=== PATIENT | male | born 1950 | race Caucasian/White ===

== ENCOUNTER 2023-09-02 09:54 | Inpatient (IN) | payer SELFPAY ==
[~2023-09-02] VITALS: Ht 170.2 cm; Wt 72.6 kg
[2023-09-02 10:36] LABS: BASOPHILS % 1.1 % (0.0-2.0); EOSINOPHILS % 1.1 % (0.0-5.0); HEMATOCRIT. 32.4 % (42.0-52.0); HEMOGLOBIN. 10.9 g/dL (14.0-18.0); LYMPHOCYTES % 7.3 % (20.0-50.0); MEAN CORPUSCULAR HEMOGLOBIN 31.2 pg (28.0-32.0); MEAN CORPUSCULAR HGB CONC 33.8 g/dL (31.0-37.0); MEAN CORPUSCULAR VOLUME 92.4 fL (80.0-94.0); MEAN PLATELET VOLUME 7.1 fl (7.4-10.4); MONOCYTES % 9.3 % (2.0-8.0); NEUTROPHILS % 81.2 % (40.0-76.0); PLATELET 354 x1000/uL (130-400); RED BLOOD CELL COUNT 3.51 mill/uL (4.7-6.1); RED CELL DISTRIBUTION WIDTH 13.8 % (11.6-14.6); WHITE BLOOD COUNT 9.5 x1000/uL (4.5-11.0)
[2023-09-02 10:48] LABS: CARBON DIOXIDE 22 mEq/L (21-32); CHLORIDE 107 mEq/L (98-107); POTASSIUM 3.2 mEq/L (3.5-5.1); SODIUM 139 mEq/L (136-145)
[2023-09-02 10:49] LABS: CALCIUM 6.1 mg/dL (8.7-10.4)
[2023-09-02 10:53] LABS: CREATININE 2.9 mg/dL (0.6-1.3); GLUCOSE 99 mg/dL (70-105); UREA NITROGEN BLOOD 11 mg/dL (9-23)
[2023-09-02 10:54] LABS: TROPONIN I HIGH SENSITIVITY 15 ng/L (3.0-53)
[2023-09-02 10:55] LABS: ALANINE AMINOTRANSFERASE 15 IU/L (10-49); ALBUMIN 2.8 g/dL (3.2-4.8); ASPARTATE AMINOTRANSFERASE 36 IU/L (<34)
[2023-09-02 10:56] LABS: BILIRUBIN TOTAL 0.3 mg/dL (0.1-1.0); PROTEIN TOTAL 4.9 g/dL (6.0-8.3)
[2023-09-02 11:50] LABS: INR 1.2; PROTHROMBIN TIME 13.7 sec (9.6-11.0)
[2023-09-02] MEDS: AZITHROMYCIN 500MG/250ML 250 ML IV SCH (11:51)
[2023-09-02] MEDS: CEFTRIAXONE 2GM/50ML 50 ML IV ONE (13:57)
[2023-09-02 16:00] VITALS: BP 137/85; PULSE 96; RESP 18; TEMP 97.9
[2023-09-02 17:58] VITALS: BP 137/85; PULSE 94; RESP 18; TEMP 97.8
[2023-09-02] MEDS ORDERED: DIPHENHYDRAMINE 50MG/ML VIAL IV PRN (18:00)
[2023-09-02] MEDS ORDERED: CLONIDINE 0.1MG TABLET PO PRN (18:00)
[2023-09-02] MEDS ORDERED: DEXTROSE 50% WATER 50ML SYRINGE IV PRN (18:00)
[2023-09-02] MEDS ORDERED: MAGNESIUM/ALUMINUM HYDROXIDE/SIMETHICONE 30ML UDC PO PRN (18:00)
[2023-09-02] MEDS ORDERED: ONDANSETRON HCL 4MG/2ML INJ IV PRN (18:00)
[2023-09-02] MEDS ORDERED: ACETAMINOPHEN 325MG TABLET PO PRN ×2 (18:00)
[2023-09-02] MEDS ORDERED: GUAIFENESIN 200MG/10ML SUGAR FREE UDC PO PRN (18:00)
[2023-09-02 20:00] VITALS: BP 121/73; PULSE 119; RESP 18; TEMP 98.4
[2023-09-02] MEDS: BLOOD SUGAR DIAGNOSTIC STRIP TEST SCH (21:00)
[2023-09-02] MEDS: SODIUM CHLORIDE 0.9% INJ 3ML FLUSH IVF SCH (21:08)
[2023-09-02] MEDS: INSULIN LISPRO 100 UNITS/ML SUBCUT SCH (21:12)
[2023-09-02 21:28] LABS: TROPONIN I HIGH SENSITIVITY 21 ng/L (3.0-53)
[2023-09-03] VITALS: BP 109/75; PULSE 91; RESP 19; TEMP 98.8
[2023-09-03 04:00] VITALS: BP 140/74; PULSE 94; RESP 18; TEMP 98.9
[2023-09-03 08:00] VITALS: BP 128/79; PULSE 107; RESP 18; TEMP 97.3
[2023-09-03] MEDS ORDERED: METO-539 PO (08:36)
[2023-09-03] MEDS ORDERED: LOPHC2 GT (08:36)
[2023-09-03] MEDS ORDERED: AMLO5TAB88 PO (08:38)
[2023-09-03] MEDS ORDERED: LOSA50TA41 PO (08:41)
[2023-09-03] MEDS ORDERED: CALC667C MT (08:45)
[2023-09-03 12:00] VITALS: BP 123/75; PULSE 105; RESP 20; TEMP 97.5
[2023-09-03 16:00] VITALS: BP 117/58; PULSE 112; RESP 18; TEMP 97.8
[2023-09-03 20:00] VITALS: BP 106/85; PULSE 100; RESP 18; TEMP 97.9
[2023-09-04] VITALS (10 sets, daily range): BP systolic 131–150; BP diastolic 72–91; PULSE 97–106; RESP 18–20; TEMP 96.6–98; O2SAT 97
[2023-09-04 08:38] LABS: BASOPHILS % 1.1 % (0.0-2.0); EOSINOPHILS % 2.4 % (0.0-5.0); HEMOGLOBIN. 8.8 g/dL (14.0-18.0); LYMPHOCYTES % 9.5 % (20.0-50.0); MEAN CORPUSCULAR HEMOGLOBIN 31.2 pg (28.0-32.0); MEAN CORPUSCULAR VOLUME 91.7 fL (80.0-94.0); MEAN PLATELET VOLUME 6.3 fl (7.4-10.4); MONOCYTES % 11.9 % (2.0-8.0); NEUTROPHILS % 75.1 % (40.0-76.0); PLATELET 320 x1000/uL (130-400); RED BLOOD CELL COUNT 2.84 mill/uL (4.7-6.1); RED CELL DISTRIBUTION WIDTH 13.7 % (11.6-14.6); WHITE BLOOD COUNT 7.9 x1000/uL (4.5-11.0)
[2023-09-04 08:47] LABS: CHLORIDE 100 mEq/L (98-107); POTASSIUM 3.8 mEq/L (3.5-5.1); SODIUM 135 mEq/L (136-145)
[2023-09-04 08:48] LABS: CARBON DIOXIDE 25 mEq/L (21-32)
[2023-09-04 08:49] LABS: CALCIUM 7.4 mg/dL (8.7-10.4)
[2023-09-04 08:53] LABS: GLUCOSE 97 mg/dL (70-105)
[2023-09-04 08:54] LABS: UREA NITROGEN BLOOD 28 mg/dL (9-23)
[2023-09-04 08:56] LABS: PHOSPHORUS 4.7 mg/dL (2.5-4.9)
== END 2023-09-04 19:20 | disposition home or self-care (01) | DRG 48 ==
LOC: ER 10:23 → EDBD 10:23 → EDBEDREQ 13:39 → EDBEDREQTM 13:39 → 8WST 17:04 → EDBD 17:04 → 8WST 17:25
PROVIDERS: ADMIT Internal Medicine; ATTEND Internal Medicine
DX: G90.8 Other disorders of autonomic nervous system (principal); I12.0 Hypertensive chronic kidney disease with stage 5 chronic kidney disease or end stage renal disease; N18.6 End stage renal disease; I48.20 Chronic atrial fibrillation, unspecified; E11.22 Type 2 diabetes mellitus with diabetic chronic kidney disease; I25.10 Atherosclerotic heart disease of native coronary artery without angina pectoris; Z99.2 Dependence on renal dialysis; Z60.3 Acculturation difficulty; I25.2 Old myocardial infarction; Z91.199 Patient's noncompliance with other medical treatment and regimen due to unspecified reason
CPT/HCPCS: 36415; 71045; 71250; 76770; 80048; 80053; 82962; 83036; 83735; 83880; 84100; 84484; 85025; 90935; 93005; 93306; 99291; J0456; J0696; J1815

== ENCOUNTER 2023-10-20 21:34 | Inpatient (IN) | payer SELFPAY ==
[~2023-10-20] VITALS: Ht 167.6 cm; Wt 66.2 kg
[~2023-10-20 21:34] MED LIST: AMLO5TAB88 PO; CALC667C PO; LOSA50TA41 PO; METO-539 PO
[2023-10-20] MEDS ORDERED: ALBUTEROL (0.083%) 2.5MG/3ML NEB HHN STA (21:41)
[2023-10-20] MEDS ORDERED: IPRATROPIUM BROMIDE (0.02%) 0.5MG/2.5ML NEB HHN STA (21:41)
[2023-10-20] MEDS: METHYLPREDNISOLONE SOD SUCC 125MG/2ML (ACT-O-VIAL) IV STA (21:59)
[2023-10-20] MEDS: HYDRALAZINE 20MG/ML VIAL IV ONE (21:59)
[2023-10-20 22:03] VITALS: RESP 34
[2023-10-20 22:12] LABS: BASOPHILS % 1.1 % (0.0-2.0); HEMATOCRIT. 37.9 % (42.0-52.0); LYMPHOCYTES % 21.1 % (20.0-50.0); MEAN CORPUSCULAR HEMOGLOBIN 29.1 pg (28.0-32.0); MEAN CORPUSCULAR HGB CONC 31.7 g/dL (31.0-37.0); MEAN CORPUSCULAR VOLUME 91.7 fL (80.0-94.0); MEAN PLATELET VOLUME 7.1 fl (7.4-10.4); MONOCYTES % 11.3 % (2.0-8.0); NEUTROPHILS % 64.5 % (40.0-76.0); PLATELET 307 x1000/uL (130-400); RED BLOOD CELL COUNT 4.13 mill/uL (4.7-6.1); RED CELL DISTRIBUTION WIDTH 16.6 % (11.6-14.6)
[2023-10-20 22:20] LABS: CARBON DIOXIDE 26 mEq/L (21-32); CHLORIDE 98 mEq/L (98-107); POTASSIUM 4.1 mEq/L (3.5-5.1); SODIUM 134 mEq/L (136-145)
[2023-10-20 22:21] LABS: CALCIUM 9.3 mg/dL (8.7-10.4)
[2023-10-20 22:26] LABS: GLUCOSE 243 mg/dL (70-105); UREA NITROGEN BLOOD 32 mg/dL (9-23)
[2023-10-20 22:29] LABS: TROPONIN I HIGH SENSITIVITY 61 ng/L (3.0-53)
[2023-10-20 22:30] LABS: CREATININE 6.2 mg/dL (0.6-1.3)
[2023-10-20 22:36] LABS: BG BASE EXCESS -3.3 mmol/L (-2.0-2.0); BG CARBOXYHEMOGLOBIN 1.2 % (0.5-1.5); BG DEOXYHEMOGLOBIN 15.8 % (0.0-5.0); BG FRACTION INSPIRED OXYGEN 100; BG HCO3 ACT 26.1 mmol/L (22.0-26.0); BG METHEMOGLOBIN 0.2 % (0.0-1.5); BG OXYHEMOGLOBIN 82.8 % (94.0-97.0); BG PCO2 68.1 mmHg (35.0-45.0); BG PH 7.201 (7.350-7.450); BG PO2 59.3 mmHg (75.0-100.0); BG TOTAL HEMOGLOBIN 13.2 g/dL (12.0-18.0); BG VENT MODE MASK - NRB
[2023-10-21] VITALS (22 sets, daily range): BP systolic 15–178; BP diastolic 79–109; PULSE 87–125; RESP 16–35; TEMP 97–98.4
[2023-10-21] MEDS ORDERED: MAGNESIUM/ALUMINUM HYDROXIDE/SIMETHICONE 30ML UDC PO PRN (01:15)
[2023-10-21] MEDS ORDERED: ACETAMINOPHEN 325MG TABLET PO PRN ×2 (01:15)
[2023-10-21] MEDS ORDERED: GUAIFENESIN 200MG/10ML SUGAR FREE UDC PO PRN (01:15)
[2023-10-21] MEDS ORDERED: ONDANSETRON HCL 4MG/2ML INJ IV PRN (01:15)
[2023-10-21] MEDS ORDERED: DOCUSATE SODIUM 100MG CAPSULE PO PRN (01:15)
[2023-10-21] MEDS ORDERED: IPRATROPIUM/ALBUTEROL 0.5-3(2.5)MG/3ML NEB HHN PRN (01:15)
[2023-10-21] MEDS: CLONIDINE 0.1MG TABLET PO PRN (01:41)
[2023-10-21] MEDS ORDERED: DEXTROSE 50% WATER 50ML SYRINGE IV PRN (02:45)
[2023-10-21 05:50] LABS: CHLORIDE 99 mEq/L (98-107); D-DIMER 2.45 mg/L FEU (<0.50); INR 1.1; POTASSIUM 4.5 mEq/L (3.5-5.1); PROTHROMBIN TIME 11.9 sec (9.6-11.0); SODIUM 135 mEq/L (136-145)
[2023-10-21 05:51] LABS: CARBON DIOXIDE 25 mEq/L (21-32)
[2023-10-21 05:56] LABS: GLUCOSE 170 mg/dL (70-105); UREA NITROGEN BLOOD 35 mg/dL (9-23)
[2023-10-21 05:58] LABS: PHOSPHORUS 2.8 mg/dL (2.5-4.9)
[2023-10-21 05:59] LABS: CREATINE KINASE MB FRACTION 3.9 ng/mL (0.5-3.6); HEMATOCRIT. 32.9 % (42.0-52.0); HEMOGLOBIN. 10.4 g/dL (14.0-18.0); MEAN CORPUSCULAR HEMOGLOBIN 28.7 pg (28.0-32.0); MEAN CORPUSCULAR HGB CONC 31.6 g/dL (31.0-37.0); MEAN PLATELET VOLUME 7.2 fl (7.4-10.4); PLATELET 241 x1000/uL (130-400); RED BLOOD CELL COUNT 3.61 mill/uL (4.7-6.1); RED CELL DISTRIBUTION WIDTH 16.5 % (11.6-14.6); WHITE BLOOD COUNT 6.2 x1000/uL (4.5-11.0)
[2023-10-21 06:26] LABS: HEPATITIS B SURFACE ANTIGEN NEGATIVE (Negative)
[2023-10-21 06:41] LABS: CREATININE 6.9 mg/dL (0.6-1.3)
[2023-10-21 06:47] LABS: HEPATITIS A AB IGM NEGATIVE (Negative)
[2023-10-21 06:48] LABS: HEPATITIS B CORE AB IGM NEGATIVE (Negative); HEPATITIS C AB NON REACTIVE (Neg) (Negative)
[2023-10-21 07:17] LABS: DIFFERENTIAL COMMENT 1
[2023-10-21] MEDS: BLOOD SUGAR DIAGNOSTIC STRIP TEST SCH (07:30)
[2023-10-21 09:39] LABS: BG BASE EXCESS -0.1 mmol/L (-2.0-2.0); BG CALCIUM 1.12 mmol/L (1.13-1.32); BG CARBOXYHEMOGLOBIN 0.1 % (0.5-1.5); BG CHLORIDE 96 mmol/L (98-106); BG DEOXYHEMOGLOBIN 1.8 % (0.0-5.0); BG FRACTION INSPIRED OXYGEN 50; BG HCO3 ACT 24.3 mmol/L (22.0-26.0); BG METHEMOGLOBIN 0.3 % (0.0-1.5); BG OXYGEN SATURATION 98.2 % (92.0-98.5); BG OXYHEMOGLOBIN 97.8 % (94.0-97.0); BG PH 7.413 (7.350-7.450); BG PO2 118.3 mmHg (75.0-100.0); BG POTASSIUM 4.28 mmol/L (3.50-5.30); BG SAMPLE SITE RIGHT BRACHIAL; BG SODIUM 134.6 mmol/L (135.0-148.0); BG TOTAL HEMOGLOBIN 13.4 g/dL (12.0-18.0); BG VENT MODE MASK - BIPAP
[2023-10-21] MEDS: CALCIUM ACETATE 667MG CAPSULE PO SCH (10:25)
[2023-10-21] MEDS: AMLODIPINE 5MG TABLET PO SCH (10:26)
[2023-10-21] MEDS: PANTOPRAZOLE 40MG DR TABLET PO SCH (10:27)
[2023-10-21] MEDS: METOPROLOL TARTRATE 50MG TABLET PO SCH (10:27)
[2023-10-21] MEDS: INSULIN LISPRO 100 UNITS/ML SUBCUT SCH (10:28)
[2023-10-21] MEDS: ENOXAPARIN 30MG/0.3ML SYR SUBCUT SCH (10:28)
[2023-10-21 14:03] LABS: ANISOCYTOSIS 1+; PLATELET ESTIMATE NORMAL
[2023-10-21 15:10] LABS: CREATINE KINASE MB FRACTION 4.3 ng/mL (0.5-3.6)
[2023-10-22] VITALS (7 sets, daily range): BP systolic 120–165; BP diastolic 80–100; PULSE 74–103; RESP 13–27; TEMP 97.3–99.1; O2SAT 98
[2023-10-23] MEDS ORDERED: AMLODIPINE 10MG TABLET PO SCH (09:00)
[2023-10-23] MEDS ORDERED: FAMOTIDINE 20MG TABLET PO SCH (09:00)
== END 2023-10-22 18:55 | disposition home or self-care (01) | DRG 133 ==
LOC: ER 21:34 → 5EST 10-21 01:41
PROVIDERS: ADMIT Hospitalist; ATTEND Hospitalist
PROC: 5A1935Z Respiratory Ventilation, Less than 24 Consecutive Hours (ICD-10-PCS; principal; 2023-10-20)
PROC: 5A09357 Assistance with Respiratory Ventilation, Less than 24 Consecutive Hours, Continuous Positive Airway Pressure (ICD-10-PCS; 2023-10-20)
PROC: 5A1D70Z Performance of Urinary Filtration, Intermittent, Less than 6 Hours Per Day (ICD-10-PCS; 2023-10-21)
DX: J96.01 Acute respiratory failure with hypoxia (principal); I50.23 Acute on chronic systolic (congestive) heart failure; I21.A1 Myocardial infarction type 2; D63.1 Anemia in chronic kidney disease; E83.39 Other disorders of phosphorus metabolism; I13.2 Hypertensive heart and chronic kidney disease with heart failure and with stage 5 chronic kidney disease, or end stage renal disease; E87.29 Other acidosis; J84.9 Interstitial pulmonary disease, unspecified; I48.20 Chronic atrial fibrillation, unspecified; N18.6 End stage renal disease; E11.22 Type 2 diabetes mellitus with diabetic chronic kidney disease; N25.81 Secondary hyperparathyroidism of renal origin; I16.1 Hypertensive emergency; Z99.2 Dependence on renal dialysis; Z79.01 Long term (current) use of anticoagulants; Z79.899 Other long term (current) drug therapy; Z91.199 Patient's noncompliance with other medical treatment and regimen due to unspecified reason
CPT/HCPCS: 36415; 36600; 71045; 80048; 80051; 82375; 82550; 82553; 82805; 82962; 83735; 83880; 84100; 84484; 85025; 85379; 86705; 86709; 87340; 90935; 93005; 93970; 94660; 99291; J0360; J1650; J1815; J2919

== ENCOUNTER 2023-11-06 04:03 | Inpatient (IN) | payer MEDICAID ==
[~2023-11-06] VITALS: Ht 167.6 cm; Wt 75.3 kg
[2023-11-06] VITALS (11 sets, daily range): BP systolic 110–185; BP diastolic 20–105; PULSE 107–108; RESP 20–38; TEMP 97.5–98
[2023-11-06] MEDS: ALBUTEROL (0.083%) 2.5MG/3ML NEB HHN STA (04:15)
[2023-11-06] MEDS: IPRATROPIUM BROMIDE (0.02%) 0.5MG/2.5ML NEB HHN STA (04:15)
[2023-11-06] MEDS: NITROGLYCERIN 50MG PREMIX 250 ML IV ONE ×2 (04:23→04:32)
[2023-11-06 04:31] LABS: BG BASE EXCESS -4.6 mmol/L (-2.0-2.0); BG DEOXYHEMOGLOBIN 4.7 % (0.0-5.0); BG FRACTION INSPIRED OXYGEN 40; BG HCO3 ACT 21.8 mmol/L (22.0-26.0); BG METHEMOGLOBIN 0.1 % (0.0-1.5); BG OXYGEN SATURATION 95.2 % (92.0-98.5); BG OXYHEMOGLOBIN 94.2 % (94.0-97.0); BG PCO2 45.2 mmHg (35.0-45.0); BG PH 7.301 (7.350-7.450); BG PO2 84.7 mmHg (75.0-100.0); BG SAMPLE SITE RIGHT RADIAL; BG VENT MODE MASK - BIPAP
[2023-11-06 04:34] LABS: BASOPHILS % 0.7 % (0.0-2.0); EOSINOPHILS % 1.3 % (0.0-5.0); HEMATOCRIT. 40.9 % (42.0-52.0); LYMPHOCYTES % 12.5 % (20.0-50.0); MEAN CORPUSCULAR HEMOGLOBIN 28.7 pg (28.0-32.0); MEAN CORPUSCULAR HGB CONC 31.8 g/dL (31.0-37.0); MEAN PLATELET VOLUME 6.4 fl (7.4-10.4); MONOCYTES % 7.1 % (2.0-8.0); NEUTROPHILS % 78.4 % (40.0-76.0); PLATELET 234 x1000/uL (130-400); RED BLOOD CELL COUNT 4.54 mill/uL (4.7-6.1); WHITE BLOOD COUNT 9.7 x1000/uL (4.5-11.0)
[2023-11-06 04:49] LABS: PARTIAL THROMBOPLASTIN TIME 27.2 sec (23.4-31.0); PROTHROMBIN TIME 11.3 sec (9.6-11.0)
[2023-11-06 04:50] LABS: CHLORIDE 103 mEq/L (98-107); SODIUM 138 mEq/L (136-145)
[2023-11-06 04:51] LABS: CARBON DIOXIDE 22 mEq/L (21-32)
[2023-11-06 04:52] LABS: CALCIUM 8.5 mg/dL (8.7-10.4)
[2023-11-06 04:57] LABS: GLUCOSE 237 mg/dL (70-105); UREA NITROGEN BLOOD 20 mg/dL (9-23)
[2023-11-06 04:58] LABS: ALANINE AMINOTRANSFERASE 10 IU/L (10-49); ASPARTATE AMINOTRANSFERASE 25 IU/L (<34)
[2023-11-06 04:59] LABS: BILIRUBIN DIRECT 0.2 mg/dL (<=3.0); BILIRUBIN TOTAL 0.5 mg/dL (0.1-1.0); PROTEIN TOTAL 6.7 g/dL (6.0-8.3)
[2023-11-06 05:08] LABS: ETHANOL BLOOD < 10 mg/dL (<10)
[2023-11-06 05:15] LABS: CREATININE 6.6 mg/dL (0.6-1.3); TROPONIN I HIGH SENSITIVITY 106 ng/L (3.0-53)
[2023-11-06] MEDS: FUROSEMIDE 40MG/4ML VIAL IVP ONE (05:20)
[2023-11-06 08:32] LABS: TROPONIN I HIGH SENSITIVITY 146 ng/L (3.0-53)
[2023-11-06] MEDS ORDERED: ONDANSETRON HCL 4MG/2ML INJ IV PRN (13:00)
[2023-11-06] MEDS ORDERED: IPRATROPIUM/ALBUTEROL 0.5-3(2.5)MG/3ML NEB HHN PRN (13:00)
[2023-11-06] MEDS: NIFEDIPINE XL 60MG TAB PO SCH (13:22)
[2023-11-06 14:24] LABS: HEPATITIS B SURFACE ANTIGEN NEGATIVE (Negative)
[2023-11-06 14:44] LABS: HEPATITIS A AB IGM NEGATIVE (Negative)
[2023-11-06 14:45] LABS: HEPATITIS B CORE AB IGM NEGATIVE (Negative); HEPATITIS C AB NON REACTIVE (Neg) (Negative)
[2023-11-06] MEDS ORDERED: DEXTROSE 50% WATER 50ML SYRINGE IV PRN ×2 (23:30)
[2023-11-07] VITALS (19 sets, daily range): BP systolic 125–151; BP diastolic 75–92; PULSE 94–109; RESP 16–28; TEMP 97–98.8
[2023-11-07 07:03] LABS: BASOPHILS % 0.8 % (0.0-2.0); EOSINOPHILS % 2.1 % (0.0-5.0); HEMATOCRIT. 35.4 % (42.0-52.0); HEMOGLOBIN. 11.4 g/dL (14.0-18.0); LYMPHOCYTES % 12.2 % (20.0-50.0); MEAN CORPUSCULAR HEMOGLOBIN 28.8 pg (28.0-32.0); MEAN CORPUSCULAR HGB CONC 32.1 g/dL (31.0-37.0); MEAN CORPUSCULAR VOLUME 89.7 fL (80.0-94.0); MEAN PLATELET VOLUME 6.9 fl (7.4-10.4); MONOCYTES % 12.2 % (2.0-8.0); NEUTROPHILS % 72.7 % (40.0-76.0); PLATELET 212 x1000/uL (130-400); RED BLOOD CELL COUNT 3.95 mill/uL (4.7-6.1); RED CELL DISTRIBUTION WIDTH 16.9 % (11.6-14.6); WHITE BLOOD COUNT 6.3 x1000/uL (4.5-11.0)
[2023-11-07 07:07] LABS: CHLORIDE 100 mEq/L (98-107); POTASSIUM 3.9 mEq/L (3.5-5.1); SODIUM 138 mEq/L (136-145)
[2023-11-07 07:08] LABS: CARBON DIOXIDE 28 mEq/L (21-32)
[2023-11-07 07:13] LABS: TRIGLYCERIDE 106 mg/dL (0-150)
[2023-11-07 07:14] LABS: LDL CHOLESTEROL 77 mg/dL (5-100)
[2023-11-07 07:15] LABS: CHOLESTEROL 148 mg/dL (<200); HDL CHOLESTEROL 53 mg/dL (>55)
[2023-11-07] MEDS ORDERED: BLOOD SUGAR DIAGNOSTIC STRIP TEST SCH (07:30)
[2023-11-07] MEDS: INSULIN LISPRO 100 UNITS/ML SUBCUT SCH (08:00)
[2023-11-07] MEDS: BLOOD SUGAR DIAGNOSTIC STRIP TEST SCH (08:26)
[2023-11-07] MEDS: LOSARTAN 50 MG TABLET PO SCH (09:08)
[2023-11-07] MEDS: AMLODIPINE 5MG TABLET PO SCH (09:08)
[2023-11-07] MEDS: ATORVASTATIN CALCIUM 40MG TABLET PO SCH (20:41)
[2023-11-08] VITALS (13 sets, daily range): BP systolic 103–152; BP diastolic 64–86; PULSE 91–102; RESP 12–26; TEMP 97.1–98.4
[2023-11-08 05:50] LABS: POTASSIUM 3.9 mEq/L (3.5-5.1)
[2023-11-08 05:51] LABS: CALCIUM 8.1 mg/dL (8.7-10.4)
[2023-11-08 06:08] LABS: BASOPHILS % 1.2 % (0.0-2.0); EOSINOPHILS % 3.9 % (0.0-5.0); HEMATOCRIT. 36.6 % (42.0-52.0); HEMOGLOBIN. 11.6 g/dL (14.0-18.0); LYMPHOCYTES % 14.1 % (20.0-50.0); MEAN CORPUSCULAR HEMOGLOBIN 28.3 pg (28.0-32.0); MEAN CORPUSCULAR HGB CONC 31.7 g/dL (31.0-37.0); MEAN CORPUSCULAR VOLUME 89.2 fL (80.0-94.0); MEAN PLATELET VOLUME 6.7 fl (7.4-10.4); MONOCYTES % 12.7 % (2.0-8.0); NEUTROPHILS % 68.1 % (40.0-76.0); PLATELET 230 x1000/uL (130-400); RED CELL DISTRIBUTION WIDTH 16.7 % (11.6-14.6); WHITE BLOOD COUNT 5.3 x1000/uL (4.5-11.0)
[2023-11-09] VITALS (20 sets, daily range): BP systolic 98–145; BP diastolic 60–97; PULSE 90–97; RESP 14–30; TEMP 97–97.6
[2023-11-09 06:52] LABS: EOSINOPHILS % 3.7 % (0.0-5.0); HEMATOCRIT. 35.9 % (42.0-52.0); HEMOGLOBIN. 11.4 g/dL (14.0-18.0); LYMPHOCYTES % 17.7 % (20.0-50.0); MEAN CORPUSCULAR HEMOGLOBIN 28.1 pg (28.0-32.0); MEAN CORPUSCULAR HGB CONC 31.7 g/dL (31.0-37.0); MEAN CORPUSCULAR VOLUME 88.6 fL (80.0-94.0); MEAN PLATELET VOLUME 6.5 fl (7.4-10.4); MONOCYTES % 11.9 % (2.0-8.0); NEUTROPHILS % 65.7 % (40.0-76.0); PLATELET 241 x1000/uL (130-400); POTASSIUM 4.4 mEq/L (3.5-5.1); RED BLOOD CELL COUNT 4.05 mill/uL (4.7-6.1); RED CELL DISTRIBUTION WIDTH 16.1 % (11.6-14.6); WHITE BLOOD COUNT 4.9 x1000/uL (4.5-11.0)
[2023-11-09 06:54] LABS: CALCIUM 7.8 mg/dL (8.7-10.4)
[2023-11-09 07:03] LABS: CREATININE 9.3 mg/dL (0.6-1.3)
[2023-11-09] MEDS ORDERED: SODIUM BICARBONATE 4% (2.4MEQ) 5ML VIAL IV ONE (09:59)
[2023-11-09] MEDS: ACETAMINOPHEN 325MG TABLET PO PRN (12:20)
[2023-11-09 12:50] LABS: BODY FLUID RBC 1865 /cu mm (0-2000); BODY FLUID WBC 70 /cu mm (0-200)
[2023-11-10] VITALS (10 sets, daily range): BP systolic 113–151; BP diastolic 60–91; PULSE 82–97; RESP 14–26; TEMP 97.4–98.3; O2SAT 99
[2023-11-10] MEDS ORDERED: NIFE-32 PO (08:33)
[2023-11-10] MEDS ORDERED: SODIUM BICARBONATE 4% (2.4MEQ) 5ML VIAL IV ONE (08:48)
[2023-11-10] MEDS ORDERED: LOSA50TA41 PO (12:37)
== END 2023-11-10 19:00 | disposition home or self-care (01) | DRG 194 ==
LOC: ER 04:03 → 5EST 05:26 → EDBEDREQTM 05:31 → EDBEDREQ 05:31
PROVIDERS: ADMIT Internal Medicine; ATTEND Internal Medicine
PROC: 5A09357 Assistance with Respiratory Ventilation, Less than 24 Consecutive Hours, Continuous Positive Airway Pressure (ICD-10-PCS; principal; 2023-11-06)
PROC: 5A1D70Z Performance of Urinary Filtration, Intermittent, Less than 6 Hours Per Day (ICD-10-PCS; 2023-11-06)
PROC: 5A1D70Z Performance of Urinary Filtration, Intermittent, Less than 6 Hours Per Day (ICD-10-PCS; 2023-11-07)
PROC: 5A09357 Assistance with Respiratory Ventilation, Less than 24 Consecutive Hours, Continuous Positive Airway Pressure (ICD-10-PCS; 2023-11-07)
PROC: 5A1935Z Respiratory Ventilation, Less than 24 Consecutive Hours (ICD-10-PCS; 2023-11-08)
PROC: 0W9B3ZZ Drainage of Left Pleural Cavity, Percutaneous Approach (ICD-10-PCS; 2023-11-09)
PROC: 0W993ZZ Drainage of Right Pleural Cavity, Percutaneous Approach (ICD-10-PCS; 2023-11-10)
DX: I13.2 Hypertensive heart and chronic kidney disease with heart failure and with stage 5 chronic kidney disease, or end stage renal disease (principal); J96.01 Acute respiratory failure with hypoxia; N18.6 End stage renal disease; D63.1 Anemia in chronic kidney disease; J84.9 Interstitial pulmonary disease, unspecified; J44.9 Chronic obstructive pulmonary disease, unspecified; E11.22 Type 2 diabetes mellitus with diabetic chronic kidney disease; I50.23 Acute on chronic systolic (congestive) heart failure; J81.0 Acute pulmonary edema; I16.0 Hypertensive urgency; I48.91 Unspecified atrial fibrillation; Z85.118 Personal history of other malignant neoplasm of bronchus and lung; Z79.899 Other long term (current) drug therapy
CPT/HCPCS: 32555; 36415; 36600; 71045; 76604; 80048; 80051; 80061; 80076; 80320; 82375; 82805; 82962; 83036; 83880; 84484; 85025; 86705; 86709; 86850; 86900; 87340; 90935; 93005; 94644; 94660; 99291; J1940; J3490; G0480

== ENCOUNTER 2024-03-22 09:38 | Inpatient (IN) | payer BC, MEDICAID ==
[~2024-03-22] VITALS: Ht 182.9 cm; Wt 74.0 kg
[2024-03-22] VITALS (41 sets, daily range): BP systolic 133–184; BP diastolic 72–105; PULSE 88–114; RESP 17–31; TEMP 36.5848–36.78072; O2SAT 92–100
[~2024-03-22 09:38] MED LIST changes: -AMLO5TAB88 PO; -METO-539 PO; +NIFE-32 PO
[2024-03-22] MEDS ORDERED: NITROGLYCERIN 50MG PREMIX 250 ML IV ONE (09:45)
[2024-03-22] MEDS: SODIUM CHLORIDE 0.9% 500 ML IV ONE (09:54)
[2024-03-22 10:09] LABS: HEMOGLOBIN. 10.4 g/dL (14.0-18.0); MEAN CORPUSCULAR HEMOGLOBIN 28.7 pg (28.0-32.0); MEAN CORPUSCULAR HGB CONC 32.6 g/dL (31.0-37.0); MEAN CORPUSCULAR VOLUME 88.2 fL (80.0-94.0); MEAN PLATELET VOLUME 6.4 fl (7.4-10.4); PLATELET 407 x1000/uL (130-400); RED BLOOD CELL COUNT 3.63 mill/uL (4.7-6.1); RED CELL DISTRIBUTION WIDTH 16.3 % (11.6-14.6); WHITE BLOOD COUNT 12.6 x1000/uL (4.5-11.0)
[2024-03-22] MEDS: NITROGLYCERIN 50MG PREMIX 250 ML IV PRN (10:15)
[2024-03-22 10:24] LABS: CHLORIDE 101 mEq/L (98-107); SODIUM 133 mEq/L (136-145)
[2024-03-22 10:25] LABS: DIFFERENTIAL COMMENT 1
[2024-03-22 10:27] LABS: CALCIUM 9.1 mg/dL (8.7-10.4); CARBON DIOXIDE 15 mEq/L (21-32); INR 1.1
[2024-03-22 10:32] LABS: GLUCOSE 123 mg/dL (70-105); UREA NITROGEN BLOOD 82 mg/dL (9-23)
[2024-03-22 10:33] LABS: ALANINE AMINOTRANSFERASE 11 IU/L (10-49); ASPARTATE AMINOTRANSFERASE 20 IU/L (<34)
[2024-03-22 10:34] LABS: ALBUMIN 4.4 g/dL (3.2-4.8); BILIRUBIN DIRECT 0.1 mg/dL (<=3.0); BILIRUBIN TOTAL 0.3 mg/dL (0.1-1.0); PROTEIN TOTAL 8.1 g/dL (6.0-8.3)
[2024-03-22 10:43] LABS: TROPONIN I HIGH SENSITIVITY 42 ng/L (3.0-53)
[2024-03-22 10:47] LABS: POTASSIUM 6.8 mEq/L (3.5-5.1)
[2024-03-22 10:48] LABS: CREATININE 10.9 mg/dL (0.6-1.3)
[2024-03-22] MEDS ORDERED: FUROSEMIDE 100MG/10ML VIAL IV STA (10:48)
[2024-03-22] MEDS: FUROSEMIDE 40MG/4ML VIAL IV NR (11:01)
[2024-03-22 11:07] LABS: GLUCOSE URINE NEGATIVE (NEGATIVE); KETONES URINE NEGATIVE (NEGATIVE)
[2024-03-22] MEDS: INSULIN REGULAR (HUMULIN R) 1000UNITS/10ML VIAL IV ONE (11:12)
[2024-03-22] MEDS: CALCIUM GLUCONATE 100MG/ML 10ML VIAL IV ONE (11:12)
[2024-03-22] MEDS: DEXTROSE 50% WATER 50ML SYRINGE IV ONE (11:13)
[2024-03-22 11:16] LABS: CLARITY URINE CLEAR (CLEAR); COLOR URINE YELLOW (YELLOW); NITRITE URINE NEGATIVE (NEGATIVE); OCCULT BLOOD URINE NEGATIVE (NEGATIVE); PH URINE 6.5 (4.5-8.0); PROTEIN URINE NEGATIVE (NEGATIVE); SPECIFIC GRAVITY URINE 1.011 (1.005-1.030)
[2024-03-22 11:17] LABS: LEUKOCYTE ESTERASE URINE NEGATIVE (NEGATIVE); UROBILINOGEN URINE 0.2 E.U./dL (0.2-1.0)
[2024-03-22] MEDS: ALBUTEROL (0.083%) 2.5MG/3ML NEB HHN ONE (11:28)
[2024-03-22] MEDS ORDERED: ONDANSETRON HCL 4MG/2ML INJ IV PRN (12:45)
[2024-03-22 13:14] LABS: BG CARBOXYHEMOGLOBIN 0.3 % (0.5-1.5); BG DEOXYHEMOGLOBIN 0.9 % (0.0-5.0); BG FRACTION INSPIRED OXYGEN 60; BG HCO3 ACT 15.7 mmol/L (21.0-28.0); BG METHEMOGLOBIN 0.3 % (0.5-1.5); BG OXYGEN SATURATION 99.1 % (94.0-98.0); BG OXYHEMOGLOBIN 98.5 % (94.0-98.0); BG PCO2 33.9 mmHg (35.0-48.0); BG PH 7.284 (7.350-7.450); BG PO2 212.1 mmHg (83.0-108.0); BG SAMPLE SITE RIGHT RADIAL; BG TOTAL HEMOGLOBIN 9.5 g/dL (13.5-17.5); BG VENT MODE MASK - BIPAP
[2024-03-22] MEDS: CEFTRIAXONE 1GM/50ML 50 ML IV SCH (13:45)
[2024-03-22] MEDS ORDERED: HYDRALAZINE 20MG/ML VIAL IV PRN (14:00)
[2024-03-22 14:05] LABS: PLATELET ESTIMATE SLIGHTLY INCREASED
[2024-03-22] MEDS: AZITHROMYCIN 500MG/250ML 250 ML IV SCH (14:15)
[2024-03-22 15:27] LABS: IRON 52 ug/dL (65-175)
[2024-03-22 15:30] LABS: TOTAL IRON BINDING CAPACITY 119 ug/dl (250-425)
[2024-03-22 15:46] LABS: ETHANOL BLOOD < 10 mg/dL (<10)
[2024-03-22 15:48] LABS: POTASSIUM 6.4 mEq/L (3.5-5.1)
[2024-03-22] MEDS: CALCIUM ACETATE 667MG CAPSULE PO SCH (17:36)
[2024-03-22] MEDS: DEXTROSE 50% WATER 50ML SYRINGE IV NR (17:36)
[2024-03-22] MEDS: SODIUM ZIRCONIUM CYCLOSILICATE 10GM/PACKET PO NR (17:36)
[2024-03-22] MEDS: INSULIN REGULAR (HUMULIN R) 1000UNITS/10ML VIAL IV NR (17:38)
[2024-03-22 21:08] LABS: BG BASE EXCESS -8.7 mmol/L (-2.0-3.0); BG CARBOXYHEMOGLOBIN 0.5 % (0.5-1.5); BG DEOXYHEMOGLOBIN 2.6 % (0.0-5.0); BG FRACTION INSPIRED OXYGEN 40; BG METHEMOGLOBIN 0.2 % (0.5-1.5); BG OXYGEN SATURATION 97.4 % (94.0-98.0); BG OXYHEMOGLOBIN 96.7 % (94.0-98.0); BG PCO2 30.2 mmHg (35.0-48.0); BG PH 7.343 (7.350-7.450); BG PO2 106.6 mmHg (83.0-108.0); BG SAMPLE SITE RIGHT RADIAL; BG TOTAL HEMOGLOBIN 8.1 g/dL (13.5-17.5); BG VENT MODE MASK - BIPAP
[2024-03-22] MEDS: LOSARTAN 50 MG TABLET PO SCH (21:34)
[2024-03-22] MEDS: NITROGLYCERIN OINT 1GM/INCH UDPKT TD SCH (21:35)
[2024-03-22] MEDS: NIFEDIPINE XL 60MG TAB PO SCH (21:35)
[2024-03-22 23:21] LABS: POTASSIUM 6.1 mEq/L (3.5-5.1)
[2024-03-22 23:22] LABS: CALCIUM 8.4 mg/dL (8.7-10.4)
[2024-03-22 23:36] LABS: FOLIC ACID (FOLATE) SERUM 10.35 ng/mL (>5.38)
[2024-03-22 23:37] LABS: VITAMIN B12 SERUM 476 pg/mL (211-911)
[2024-03-23] VITALS (49 sets, daily range): BP systolic 93–150; BP diastolic 52–104; PULSE 78–104; RESP 16–34; TEMP 36.55848–36.9474; O2SAT 90–100
[2024-03-23] MEDS: NITROGLYCERIN 50MG PREMIX 250 ML IV PRN (00:44)
[2024-03-23] MEDS ORDERED: DEXTROSE 50% WATER 50ML SYRINGE IV PRN ×2 (02:45→14:15)
[2024-03-23] MEDS: SODIUM BICARBONATE 8.4% 50MEQ/50ML SYR IV NR (02:54)
[2024-03-23] MEDS: INSULIN REGULAR (HUMULIN R) 1000UNITS/10ML VIAL IV NR (02:54)
[2024-03-23] MEDS: DEXTROSE 50% WATER 50ML SYRINGE IV NR (02:54)
[2024-03-23 05:07] LABS: BG BASE EXCESS -6.8 mmol/L (-2.0-3.0); BG FRACTION INSPIRED OXYGEN 30; BG HCO3 ACT 18.1 mmol/L (21.0-28.0); BG METHEMOGLOBIN 0.3 % (0.5-1.5); BG OXYHEMOGLOBIN 95.7 % (94.0-98.0); BG PCO2 33.5 mmHg (35.0-48.0); BG PH 7.351 (7.350-7.450); BG PO2 96.8 mmHg (83.0-108.0); BG SAMPLE SITE LEFT RADIAL; BG TOTAL HEMOGLOBIN 7.9 g/dL (13.5-17.5); BG VENT MODE MASK - BIPAP
[2024-03-23 06:34] LABS: POTASSIUM 5.8 mEq/L (3.5-5.1)
[2024-03-23 06:35] LABS: CALCIUM 8.7 mg/dL (8.7-10.4)
[2024-03-23 06:48] LABS: CREATININE 11.7 mg/dL (0.6-1.3)
[2024-03-23 08:53] LABS: LDL CHOLESTEROL 56 mg/dL (5-100); TRIGLYCERIDE 70 mg/dL (0-150)
[2024-03-23 08:54] LABS: CHOLESTEROL 120 mg/dL (<200); HDL CHOLESTEROL 46 mg/dL (>55)
[2024-03-23] MEDS ORDERED: LOSARTAN 50 MG TABLET PO SCH (09:00)
[2024-03-23 12:22] LABS: BASOPHILS % 0.6 % (0.0-2.0); EOSINOPHILS % 2.3 % (0.0-5.0); HEMATOCRIT. 25.9 % (42.0-52.0); HEMOGLOBIN. 8.6 g/dL (14.0-18.0); LYMPHOCYTES % 7.6 % (20.0-50.0); MEAN CORPUSCULAR HGB CONC 33.1 g/dL (31.0-37.0); MEAN CORPUSCULAR VOLUME 87.6 fL (80.0-94.0); MEAN PLATELET VOLUME 6.3 fl (7.4-10.4); MONOCYTES % 10.9 % (2.0-8.0); NEUTROPHILS % 78.6 % (40.0-76.0); PLATELET 329 x1000/uL (130-400); RED BLOOD CELL COUNT 2.95 mill/uL (4.7-6.1); RED CELL DISTRIBUTION WIDTH 16.2 % (11.6-14.6); WHITE BLOOD COUNT 6.8 x1000/uL (4.5-11.0)
[2024-03-23 12:31] LABS: TROPONIN I HIGH SENSITIVITY 42 ng/L (3.0-53)
[2024-03-23] MEDS: AZITHROMYCIN 500MG/250ML 250 ML IV SCH (14:00)
[2024-03-23] MEDS: FOLIC ACID/VITAMIN B COMP W-C TABLET PO SCH (15:15)
[2024-03-23] MEDS: CEFTRIAXONE 1GM/50ML 50 ML IV SCH (15:30)
[2024-03-23] MEDS ORDERED: BLOOD SUGAR DIAGNOSTIC STRIP TEST SCH (16:30)
[2024-03-23] MEDS: INSULIN LISPRO 100 UNITS/ML SUBCUT SCH (17:00)
[2024-03-23] MEDS: CALCITRIOL 0.25MCG CAPSULE PO SCH (18:14)
[2024-03-24] VITALS (11 sets, daily range): BP systolic 123–180; BP diastolic 66–109; PULSE 92–114; RESP 18–33; TEMP 36.83628–37.39188; O2SAT 58–98
[2024-03-24 06:06] LABS: BASOPHILS % 0.6 % (0.0-2.0); EOSINOPHILS % 3.5 % (0.0-5.0); HEMATOCRIT. 23.5 % (42.0-52.0); HEMOGLOBIN. 7.9 g/dL (14.0-18.0); LYMPHOCYTES % 7.4 % (20.0-50.0); MEAN CORPUSCULAR HEMOGLOBIN 29.2 pg (28.0-32.0); MEAN CORPUSCULAR HGB CONC 33.4 g/dL (31.0-37.0); MEAN CORPUSCULAR VOLUME 87.4 fL (80.0-94.0); MEAN PLATELET VOLUME 6.4 fl (7.4-10.4); MONOCYTES % 14.5 % (2.0-8.0); PLATELET 280 x1000/uL (130-400); RED BLOOD CELL COUNT 2.69 mill/uL (4.7-6.1); RED CELL DISTRIBUTION WIDTH 16.1 % (11.6-14.6)
[2024-03-24 06:27] LABS: CALCIUM 8.2 mg/dL (8.7-10.4)
[2024-03-24 06:34] LABS: PHOSPHORUS 7.3 mg/dL (2.5-4.9)
[2024-03-24 06:47] LABS: CREATININE 9.5 mg/dL (0.6-1.3)
[2024-03-24] MEDS: SODIUM ZIRCONIUM CYCLOSILICATE 10GM/PACKET PO NR (10:47)
[2024-03-24] MEDS: PANTOPRAZOLE 40MG DR TABLET PO SCH (10:48)
[2024-03-24] MEDS: LOSARTAN 25 MG TABLET PO NR (10:50)
[2024-03-24] MEDS: FERROUS SULFATE 325MG TABLET PO SCH (17:54)
[2024-03-24] MEDS: ASCORBIC ACID 250 MG TABLET PO SCH (21:34)
[2024-03-25] VITALS (15 sets, daily range): BP systolic 100–166; BP diastolic 46–89; PULSE 82–108; RESP 16–20; TEMP 36.6696–37.00296; O2SAT 90–99
[2024-03-25 07:41] LABS: HEMATOCRIT. 26.3 % (42.0-52.0); HEMOGLOBIN. 8.6 g/dL (14.0-18.0); MEAN CORPUSCULAR HEMOGLOBIN 28.5 pg (28.0-32.0); MEAN CORPUSCULAR HGB CONC 32.8 g/dL (31.0-37.0); MEAN CORPUSCULAR VOLUME 87.1 fL (80.0-94.0); MEAN PLATELET VOLUME 6.2 fl (7.4-10.4); PLATELET 301 x1000/uL (130-400); RED BLOOD CELL COUNT 3.02 mill/uL (4.7-6.1); RED CELL DISTRIBUTION WIDTH 15.9 % (11.6-14.6); WHITE BLOOD COUNT 8.5 x1000/uL (4.5-11.0)
[2024-03-25 07:45] LABS: DIFFERENTIAL COMMENT 1
[2024-03-25 08:12] LABS: POTASSIUM 4.5 mEq/L (3.5-5.1)
[2024-03-25 08:13] LABS: CALCIUM 8.5 mg/dL (8.7-10.4)
[2024-03-25 08:20] LABS: PHOSPHORUS 7.4 mg/dL (2.5-4.9)
[2024-03-25 09:07] LABS: CREATININE 11.5 mg/dL (0.6-1.3)
[2024-03-25] MEDS ORDERED: FERR-63 PO (15:27)
[2024-03-25] MEDS ORDERED: NIFE-32 PO (15:27)
[2024-03-25] MEDS ORDERED: LOSA50TA41 PO (15:27)
[2024-03-25] MEDS ORDERED: CALC667C PO (15:27)
[2024-03-25] MEDS: LOSARTAN 25 MG TABLET PO SCH (18:12)
[2024-03-25] MEDS: EPOETIN ALFA-EPBX 4,000 UNIT/ML VIAL SUBCUT SCH (21:33)
[2024-03-26] LABS: PLATELET ESTIMATE NORMAL
[2024-03-26 08:00] VITALS: BP 158/82; PULSE 102; RESP 18; TEMP 36.3918; O2SAT 95
[2024-03-26 12:00] VITALS: BP 155/77; PULSE 89; RESP 18; TEMP 36.83628; O2SAT 99
[2024-03-26 12:14] VITALS: BP 145/77; PULSE 79; TEMP 98.3; O2SAT 99
[2024-03-26] MEDS ORDERED: AZITHROMYCIN 500 MG TABLET PO SCH (14:00)
[2024-03-27] MEDS ORDERED: FAMOTIDINE 20MG TABLET PO SCH (09:00)
== END 2024-03-26 18:09 | disposition home or self-care (01) | DRG 720 ==
LOC: ER 09:38 → MICUSO 10:57 → EDBEDREQTM 11:00 → EDBEDREQ 11:00 → 7WST 03-24 04:30
PROVIDERS: ADMIT Internal Medicine; ATTEND Internal Medicine
PROC: 5A09457 Assistance with Respiratory Ventilation, 24-96 Consecutive Hours, Continuous Positive Airway Pressure (ICD-10-PCS; principal; 2024-03-22)
PROC: 5A1D70Z Performance of Urinary Filtration, Intermittent, Less than 6 Hours Per Day (ICD-10-PCS; 2024-03-23)
PROC: 5A1D70Z Performance of Urinary Filtration, Intermittent, Less than 6 Hours Per Day (ICD-10-PCS; 2024-03-25)
DX: A41.9 Sepsis, unspecified organism (principal); J96.01 Acute respiratory failure with hypoxia; I50.23 Acute on chronic systolic (congestive) heart failure; G93.41 Metabolic encephalopathy; I42.9 Cardiomyopathy, unspecified; J18.9 Pneumonia, unspecified organism; N18.6 End stage renal disease; D63.1 Anemia in chronic kidney disease; E87.1 Hypo-osmolality and hyponatremia; E11.22 Type 2 diabetes mellitus with diabetic chronic kidney disease; J44.1 Chronic obstructive pulmonary disease with (acute) exacerbation; I13.2 Hypertensive heart and chronic kidney disease with heart failure and with stage 5 chronic kidney disease, or end stage renal disease; I48.0 Paroxysmal atrial fibrillation; J44.0 Chronic obstructive pulmonary disease with (acute) lower respiratory infection; E87.5 Hyperkalemia; I16.1 Hypertensive emergency; I25.10 Atherosclerotic heart disease of native coronary artery without angina pectoris; Z99.2 Dependence on renal dialysis; Z91.158 Patient's noncompliance with renal dialysis for other reason; Z79.4 Long term (current) use of insulin; Z79.899 Other long term (current) drug therapy; Z91.199 Patient's noncompliance with other medical treatment and regimen due to unspecified reason; Z92.21 Personal history of antineoplastic chemotherapy
CPT/HCPCS: 36415; 36600; 71045; 80048; 80061; 80076; 80320; 81003; 82375; 82607; 82728; 82746; 82805; 82962; 83036; 83540; 83550; 83605; 83735; 83880; 84100; 84132; 84145; 84484; 85025; 86705; 86709; 86850; 86900; 87340; 90935; 93005; 93971; 94640; 94660; 99291; J0360; J0456; J0610; J0696; J0885; J1815; J1940; J3490; J7040; G0480

== ENCOUNTER 2024-06-26 18:26 | Emergency (ER) | payer MEDICAID ==
[~2024-06-26] VITALS: Ht 172.7 cm; Wt 74.0 kg
[~2024-06-26 18:26] MED LIST changes: +FERR-63 PO
[2024-06-26 18:28] VITALS: O2SAT 98
[2024-06-27] MEDS: MORPHINE SULFATE 4 MG/ML INJ (FOR IV/IM USE) IV NR (01:02)
[2024-06-27 01:05] VITALS: BP 161/89; PULSE 99; RESP 16; TEMP 36.8; O2SAT 98
== END 2024-06-27 01:06 | disposition home or self-care (01) ==
LOC: ER 18:26
DX: C79.51 Secondary malignant neoplasm of bone (principal); M54.9 Dorsalgia, unspecified; E11.9 Type 2 diabetes mellitus without complications; E78.00 Pure hypercholesterolemia, unspecified; I10 Essential (primary) hypertension; Z79.899 Other long term (current) drug therapy; W19.XXXA Unspecified fall, initial encounter; Y93.89 Activity, other specified; Y92.89 Other specified places as the place of occurrence of the external cause; Y99.8 Other external cause status
CPT/HCPCS: 99285; 70450; 72125; 72128; 72131; 71250; 96374; J2270